=== PATIENT | female | born 1960 | race Caucasian/White ===

== ENCOUNTER → 2017-12-02 15:32 | Outpatient (CLI) | payer OTHER, SELFPAY ==
[2017-12-02 15:49] LABS: Add Manual Diff / Slide Review NO; Basophils Percent Auto 0.6 % (0-2); Eosinophils Percent Auto 1.8 % (2-4); Hematocrit 40.1 % (36-46); Hemoglobin 13.7 g/dL (12.0-16.0); Lymphocytes Percent Auto 34.1 % (25-40); Mean Corpuscular HGB Conc 34.1 % (30-36); Mean Corpuscular Hemoglobin 31.8 PG (26-34); Mean Corpuscular Volume 93.3 fL (80-100); Monocytes Percent Auto 8.9 % (3-14); Neutrophils Absolute Auto 3800 /uL (3000-5900); Neutrophils Percent Auto 54.6 % (50-75); Platelet Count 249 X10^3/uL (150-400)
[2017-12-02 15:57] LABS: Alanine Aminotransferase 23 IU/L (9-52); Albumin 4.4 g/dL (3.5-5.0); Albumin Globulin Ratio 1.6 (1.0-2.8); Alkaline Phosphatase 67 U/L (38-126); Aspartate Aminotransferase 24 IU/L (14-36); BUN Creatinine Ratio 16.3 (6-22); Bilirubin Total 0.3 mg/dL (0.2-1.3); Blood Urea Nitrogen 13 mg/dL (7-17); Calcium 8.9 mg/dL (8.4-10.2); Carbon Dioxide 26 mmol/L (22-32); Chloride 103 mmol/L (98-107); Estimated Glomerular Filt Rate > 60.0 mL/min (>60); Globulin 2.7 g/dL (1.7-4.1); Glucose 114 mg/dL (70-100); HEMOLYSIS 32 (0-50); Sodium 140 mmol/L (137-145); Total Protein 7.1 g/dL (6.3-8.2)
== END ==
PROVIDERS: Family Provider Family Medicine; PCP Family Medicine; Visit Provider Nurse Practitioner Gerontology
DX: D05.11 Intraductal carcinoma in situ of right breast (principal)
CPT/HCPCS: 36415; 80053; 85025

== ENCOUNTER → 2018-05-31 14:01 | Outpatient (CLI) | payer OTHER, SELFPAY ==
[2018-05-31 14:23] LABS: Add Manual Diff / Slide Review NO; Basophils Absolute Auto 200 /uL (0-100); Basophils Percent Auto 2.1 % (0-2); Eosinophils Absolute Auto 100 /uL (0-450); Eosinophils Percent Auto 1.3 % (2-4); Hematocrit 40.1 % (36-46); Hemoglobin 13.8 g/dL (12.0-16.0); Lymphocytes Absolute Auto 2700 /uL (1100-4500); Lymphocytes Percent Auto 37.2 % (25-40); Mean Corpuscular HGB Conc 34.5 % (30-36); Mean Corpuscular Hemoglobin 31.3 PG (26-34); Monocytes Absolute Auto 400 /uL (0-900); Monocytes Percent Auto 5.2 % (3-14); Neutrophils Absolute Auto 4000 /uL (1500-7000); Neutrophils Percent Auto 54.2 % (50-75); Platelet Count 262 X10^3/uL (150-400); Red Blood Cell Count 4.41 X10^6/uL (4.0-5.2); Red Cell Distribution Width 12.3 % (11.6-14.8); White Blood Cell Count 7.3 X10^3/uL (4.5-11.0)
[2018-05-31 16:02] LABS: Alanine Aminotransferase 28 IU/L (9-52); Albumin 4.4 g/dL (3.5-5.0); Albumin Globulin Ratio 1.5 (1.0-2.8); Alkaline Phosphatase 60 U/L (38-126); Aspartate Aminotransferase 26 IU/L (14-36); BUN Creatinine Ratio 17.5 (6-22); Bilirubin Total 0.3 mg/dL (0.2-1.3); Blood Urea Nitrogen 14 mg/dL (7-17); Carbon Dioxide 27 mmol/L (22-32); Chloride 104 mmol/L (98-107); Estimated Glomerular Filt Rate > 60.0 mL/min (>60); Glucose 93 mg/dL (70-100); HEMOLYSIS 19 (0-50); Potassium 3.9 mmol/L (3.4-5.1); Sodium 140 mmol/L (137-145); Total Protein 7.4 g/dL (6.3-8.2)
== END ==
PROVIDERS: Family Provider Family Medicine; PCP Family Medicine; Visit Provider Nurse Practitioner Gerontology
DX: D05.91 Unspecified type of carcinoma in situ of right breast (principal); Z79.810 Long term (current) use of selective estrogen receptor modulators (SERMs)
CPT/HCPCS: 36415; 80053; 85025

== ENCOUNTER → 2018-07-12 14:14 | Outpatient (CLI) | payer OTHER, SELFPAY ==
--- NOTE | 2018-07-12 | DI.MG.S_ITS ---
BILATERAL DIGITAL SCREENING MAMMOGRAM 3D/2D WITH CAD: 07/12/2018 CLINICAL: Routine screening. Personal history of right breast cancer. Family history of breast cancer. Comparison is made to exams dated: 06/03/2017 mammogram, 05/08/2016 mammogram, and 04/27/2015 mammogram - [facility]. The tissue of both breasts is extremely dense, which lowers the sensitivity of mammography. Current study was also evaluated with a Computer Aided Detection (CAD) system. There are benign post operative findings in the right breast. There are mole markers on the right breast. There is a mole marker on the left breast. No significant masses, calcifications, or other findings are seen in either breast. There has been no significant interval change. IMPRESSION: There is no mammographic evidence of malignancy. A 1 year screening mammogram is recommended. This exam was interpreted at Station ID: [id number]. NOTE: For mammograms, a report in lay terms will be sent to the patient. Approximately 15% of breast malignancies will not be visualized mammographically. In the management of a palpable breast mass, a negative mammogram must not discourage biopsy of a clinically suspicious lesion. Electronically Signed By: Pedro [email or web address]/[email or web address]:07/12/2018 18:45:29 copy to: UNIQUE NUNES letter sent: Normal Exam ACR BI-RADS Category 2: Benign Finding(s) [id number]
== END ==
PROVIDERS: Family Provider Nurse Practitioner Gerontology; PCP Family Medicine; Visit Provider Family Medicine
DX: Z12.31 Encounter for screening mammogram for malignant neoplasm of breast (principal); Z85.3 Personal history of malignant neoplasm of breast; Z80.3 Family history of malignant neoplasm of breast
CPT/HCPCS: 77063; 77067

== ENCOUNTER → 2018-11-15 06:52 | Outpatient (CLI) | payer OTHER, SELFPAY ==
[2018-11-15 07:15] LABS: Add Manual Diff / Slide Review NO; Basophils Absolute Auto 0 /uL (0-100); Basophils Percent Auto 0.7 % (0-2); Eosinophils Absolute Auto 300 /uL (0-450); Eosinophils Percent Auto 4.1 % (2-4); Hematocrit 39.5 % (36-46); Hemoglobin 13.4 g/dL (12.0-16.0); Lymphocytes Absolute Auto 2100 /uL (1100-4500); Lymphocytes Percent Auto 34.1 % (25-40); Mean Corpuscular HGB Conc 33.8 % (30-36); Mean Corpuscular Hemoglobin 31.6 PG (26-34); Mean Corpuscular Volume 93.3 fL (80-100); Monocytes Absolute Auto 600 /uL (0-900); Monocytes Percent Auto 8.9 % (3-14); Neutrophils Absolute Auto 3300 /uL (1500-7000); Neutrophils Percent Auto 52.2 % (50-75); Platelet Count 240 X10^3/uL (150-400); Red Blood Cell Count 4.23 X10^6/uL (4.0-5.2); Red Cell Distribution Width 12.9 % (11.6-14.8); White Blood Cell Count 6.3 X10^3/uL (4.5-11.0)
[2018-11-15 07:23] LABS: Alanine Aminotransferase 12 IU/L (9-52); Albumin 4.1 g/dL (3.5-5.0); Albumin Globulin Ratio 1.4 (1.0-2.8); Alkaline Phosphatase 72 U/L (38-126); Aspartate Aminotransferase 20 IU/L (14-36); BUN Creatinine Ratio 24.3 (6-22); Bilirubin Total 0.2 mg/dL (0.2-1.3); Blood Urea Nitrogen 17 mg/dL (7-17); Calcium 8.7 mg/dL (8.4-10.2); Carbon Dioxide 29 mmol/L (22-32); Chloride 105 mmol/L (98-107); Estimated Glomerular Filt Rate > 60.0 mL/min (>60); Globulin 2.9 g/dL (1.7-4.1); Glucose 112 mg/dL (70-100); HEMOLYSIS 24 (0-50); Potassium 4.3 mmol/L (3.4-5.1); Sodium 139 mmol/L (137-145)
[2018-11-15 08:58] LABS: Cholesterol 141 mg/dL (140-199); HDL Cholesterol 33 mg/dL (40-60); LDL Cholesterol Calculated 82 mg/dL (<100); Triglycerides 130 mg/dL (35-150)
[2018-11-15 09:09] LABS: Vitamin D 25 Hydroxy (D3) 46.4 ng/mL (30.0-100.0)
[2018-11-15 09:25] LABS: Thyroid Stimulating Hormone 1.07 uIU/mL (0.47-4.68)
[2018-11-15 09:43] LABS: Vitamin B12 691 pg/mL (239-931)
== END ==
PROVIDERS: Nurse Practitioner Gerontology; PCP Family Medicine; Visit Provider Family Medicine
DX: D05.11 Intraductal carcinoma in situ of right breast (principal); E78.5 Hyperlipidemia, unspecified; E55.9 Vitamin D deficiency, unspecified; E53.9 Vitamin B deficiency, unspecified; Z13.220 Encounter for screening for lipoid disorders; Z13.29 Encounter for screening for other suspected endocrine disorder; Z51.81 Encounter for therapeutic drug level monitoring
CPT/HCPCS: 36415; 80053; 80061; 82306; 82607; 84443; 85025

== ENCOUNTER → 2018-11-16 12:39 | Outpatient (CLI) | payer OTHER, SELFPAY ==
[2018-11-16 13:53] LABS: Appearance Urine UA CLEAR; Bilirubin Urine UA NEGATIVE (NEGATIVE); Color Urine UA YELLOW; Glucose Urine UA NEGATIVE (Negative); Ketones Urine UA NEGATIVE (NEGATIVE); Leukocyte Esterase Urine UA NEGATIVE (NEGATIVE); Nitrite Urine UA NEGATIVE (Negative); Occult Blood Urine UA NEGATIVE (Negative); Protein Urine UA NEGATIVE (Negative); Specific Gravity Urine UA 1.015 (1.000-1.035); Urobilinogen Urine UA 0.2 E.U./dL (0.2); pH Urine UA 6.5 (4.5-8.0)
== END ==
PROVIDERS: PCP Family Medicine; Visit Provider Family Medicine
DX: E78.5 Hyperlipidemia, unspecified (principal); Z13.220 Encounter for screening for lipoid disorders; Z13.29 Encounter for screening for other suspected endocrine disorder; Z51.81 Encounter for therapeutic drug level monitoring
CPT/HCPCS: 81003

== ENCOUNTER → 2018-12-14 14:40 | Oncology outpatient (ONC) | payer OTHER, SELFPAY ==
[2017-12-10 15:44] VITALS: BP 120/78; PULSE 98; RESP 18; TEMP 36.9; O2SAT 97
--- NOTE | 2017-12-10 16:22 | ONC.APRN.PN ---
Assessment and Plan (1) Ductal carcinoma in situ (DCIS) of right breast Current visit: No Status: Acute 12/10/17 16:25 The patient is a 57 year old Female who is being seen in the clinic 12/10/2017 . She carries a diagnosis of right-sided DCIS in clinical remission/surveillance since original diagnosis was made 2015. On exam today no clinical signs or symptoms of disease recurrence. Additionally, CBC, CMP unremarkable. Bilateral screening mammogram 06/03/2017 no evidence of malignancy with recommendation to repeat in one year. Return to clinic in 6 months time for provider visit, CBC, CMP. Continue daily tamoxifen. Continue with annual bilateral screening mammograms in May every year. I have encouraged the patient to schedule a HEPATOLOGIST pelvic exam with her primary care provider noting she is on tamoxifen. PN -Subjective Interval history: The patient is a 57 year old Female who is being seen in the clinic 12/10/2017 . She carries a diagnosis of right-sided DCIS in clinical remission/surveillance since original diagnosis was made 2015. Patient presents today for a 6 month interval follow-up, she continues with tamoxifen. Remainder of review of systems survey was negative for any cough sore throat vaginal bleeding or spotting. NO recent illnesses or infections. Denies myalgias arthralgias. No new pain, no new lumps or bumps. Mild hot flashes every now and then. She has not had a HEPATOLOGIST exam in a long time. Bilateral screening mammogram 06/03/2017 no evidence of malignancy with recommendation to repeat in one year. Past Medical History The patient's past medical history is significant for: 1) Right-sided DCIS Diagnosis: 06/05/2015. Core needle biopsy of the right breast at 2 separate locations: 10:00 middle one third and 10:00 posterior one third position. Pathology for both specimens identifying focal atypical ductal hyperplasia with fibrocystic changes microcalcifications no evidence of malignancy. 06/05/2015. Partial mastectomy without sentinel node procedure on 06/05/2015. Excised tissue measured approximately 66 x 48 x 33 mm. Pathologywith multifocal DCIS with an estimated size of 4.5 millimeters. Architectural pectoral pattern consistent with cribriform micropapillary and solid features nuclear grade was low. No necrosis was seen. Immunostains on the DCIS were ER and NE positive at greater than 95% and greater than 80% respectively Surgical margins were clear with the closest being anterior at 7.5 mm. Additional foci of ADH was also noted. No evidence of invasive disease was seen. Treatment: Patient is status post consolidative radiation therapy. July 2015-present: Tamoxifen 20 mg daily ?5 years. Surveillance: 05/08/2016. Bilateral screening mammogram. No evidence of recurrence or malignancy. Home Medications and Allergies Home Medications Medication Instructions Recorded Confirmed Type cyclobenzaprine 10 mg PO Q DAY PRN #30 tabs 01/22/16 Rx epinephrine [EpiPen 2-Jayjay] 1 actuation IJ X1 #2 pac 01/22/16 Rx omeprazole 40 mg PO Q DAY #30 cap 04/07/16 Rx hepatitis A virus vaccine (PF) 50 unit IM X1 #1 ml 12/08/16 Rx [Vaqta (PF)] hepatitis B virus vacc.rec(PF) 20 mcg IM X1 #1 ml 12/08/16 Rx [Engerix-B (PF)] atorvastatin [Lipitor] 10 mg PO HS #90 tab 02/23/17 Rx ibuprofen 800 mg PO TID PRN #100 tab 05/27/17 Rx triamcinolone acetonide 1 anirudh TOPICAL Q2HP PRN #15 gm 06/23/17 Rx fluticasone 50 mcg/actuation nasal 1 spray INTRANASAL QDAY #16 gm 10/12/17 Rx spray,suspension acyclovir [Zovirax] 400 mg PO BID #120 cap 11/13/17 Rx tamoxifen 20 mg PO DAILY 12/10/17 12/10/17 History Allergies Allergy/AdvReac Type Severity Reaction Status Date / Time acetaminophen [From VICODIN] Allergy Mild rash Unverified 07/29/17 12:07 hydrocodone [From VICODIN] Allergy Mild rash Unverified 07/29/17 12:07 oxycodone [OXYCODONE] Allergy Mild rash Unverified 07/29/17 12:07 Penicillins [PENICILLINS] Allergy Unknown Unverified 07/29/17 12:07 Exam Vital signs: Last Vital Signs Temp 98.5 F 12/10/17 15:44 Pulse 98 H 12/10/17 15:44 Resp 18 12/10/17 15:44 BP 120/78 12/10/17 15:44 Pulse Ox 97 12/10/17 15:44 - Constitutional positive no acute distress, positive average body habitus - Routine HEENT Exam Head: Present: normocephalic, atraumatic Eye: Present: conjunctivae pink. Absent: conjunctival icterus, scleral injection ENT: Present: mucous membranes moist, oropharynx clear - Routine Neck Exam Present: supple. Absent: lymphadenopathy - Routine Chest/Breast/Axilla Exam Chest wall exam standard: Absent: tenderness, mass Breast: Absent: tenderness, induration, mass Axillae: Absent: lymphadenopathy, mass, tenderness - Routine Respiratory Exam Present: Clear to auscultation bilaterally. Absent: rales, rhonchi, wheezes - Routine Cardiovascular Exam Present: RRR, S1, S2. Absent: murmur, gallop, rubs, JVD - Routine Abdominal Exam Present: soft, normoactive bowel sounds. Absent: tenderness, distended, organomegaly, mass - Routine Extremities Exam Absent: edema, calf tenderness - Routine Skin Exam Present: intact, normal turgor. Absent: petechiae, rash - Routine Neurological Exam Present: alert, oriented X3 - Routine Psychiatric Exam Present: normal affect
--- NOTE | 2017-12-10 16:27 | P.PNONC_ITS ---
Assessment and Plan (1) Ductal carcinoma in situ (DCIS) of right breast Current visit: No Status: Acute 12/10/17 16:25 The patient is a 57 year old Female who is being seen in the clinic 12/10/2017 . She carries a diagnosis of right-sided DCIS in clinical remission/ surveillance since original diagnosis was made 2015. On exam today no clinical signs or symptoms of disease recurrence. Additionally , CBC, CMP unremarkable. Bilateral screening mammogram 06/03/2017 no evidence of malignancy with recommendation to repeat in one year. Return to clinic in 6 months time for provider visit, CBC, CMP. Continue daily tamoxifen. Continue with annual bilateral screening mammograms in May every year. I have encouraged the patient to schedule a RELAY TELEGRAPHER pelvic exam with her primary care provider noting she is on tamoxifen. PN -Subjective Interval history: The patient is a 57 year old Female who is being seen in the clinic 12/10/2017 . She carries a diagnosis of right-sided DCIS in clinical remission/ surveillance since original diagnosis was made 2015. Patient presents today for a 6 month interval follow-up, she continues with tamoxifen. Remainder of review of systems survey was negative for any cough sore throat vaginal bleeding or spotting. NO recent illnesses or infections. Denies myalgias arthralgias. No new pain, no new lumps or bumps. Mild hot flashes every now and then. She has not had a RELAY TELEGRAPHER exam in a long time. Bilateral screening mammogram 06/03/2017 no evidence of malignancy with recommendation to repeat in one year. Past Medical History The patient's past medical history is significant for: 1) Right-sided DCIS Diagnosis: 06/05/2015. Core needle biopsy of the right breast at 2 separate locations: 10: 00 middle one third and 10:00 posterior one third position. Pathology for both specimens identifying focal atypical ductal hyperplasia with fibrocystic changes microcalcifications no evidence of malignancy. 06/05/2015. Partial mastectomy without sentinel node procedure on 06/05/2015. Excised tissue measured approximately 66 x 48 x 33 mm. Pathologywith multifocal DCIS with an estimated size of 4.5 millimeters. Architectural pectoral pattern consistent with cribriform micropapillary and solid features nuclear grade was low. No necrosis was seen. Immunostains on the DCIS were ER and TN positive at greater than 95% and greater than 80% respectively Surgical margins were clear with the closest being anterior at 7.5 mm. Additional foci of ADH was also noted. No evidence of invasive disease was seen. Treatment: Patient is status post consolidative radiation therapy. July 2015-present: Tamoxifen 20 mg daily ?5 years. Surveillance: 05/08/2016. Bilateral screening mammogram. No evidence of recurrence or malignancy. Home Medications and Allergies Home Medications Medication Instructions Recorded Confirmed Type cyclobenzaprine 10 mg PO Q DAY PRN #30 tabs 01/22/16 Rx epinephrine [EpiPen 2-Jayjay] 1 actuation IJ X1 #2 pac 01/22/16 Rx omeprazole 40 mg PO Q DAY #30 cap 04/07/16 Rx hepatitis A virus vaccine (PF) 50 unit IM X1 #1 ml 12/08/16 Rx [Vaqta (PF)] hepatitis B virus vacc.rec(PF) 20 mcg IM X1 #1 ml 12/08/16 Rx [Engerix-B (PF)] atorvastatin [Lipitor] 10 mg PO HS #90 tab 02/23/17 Rx ibuprofen 800 mg PO TID PRN #100 tab 05/27/17 Rx triamcinolone acetonide 1 anirudh TOPICAL Q2HP PRN #15 gm 06/23/17 Rx fluticasone 50 mcg/actuation nasal 1 spray INTRANASAL QDAY #16 gm 10/12/17 Rx spray,suspension acyclovir [Zovirax] 400 mg PO BID #120 cap 11/13/17 Rx tamoxifen 20 mg PO DAILY 12/10/17 12/10/17 History Allergies Allergy/AdvReac Type Severity Reaction Status Date / Time acetaminophen [From VICODIN] Allergy Mild rash Unverified 07/29/17 12:07 hydrocodone [From VICODIN] Allergy Mild rash Unverified 07/29/17 12:07 oxycodone [OXYCODONE] Allergy Mild rash Unverified 07/29/17 12:07 Penicillins [PENICILLINS] Allergy Unknown Unverified 07/29/17 12:07 Exam Vital signs: Last Vital Signs Temp 98.5 F 12/10/17 15:44 Pulse 98 H 12/10/17 15:44 Resp 18 12/10/17 15:44 BP 120/78 12/10/17 15:44 Pulse Ox 97 12/10/17 15:44 - Constitutional positive no acute distress, positive average body habitus - Routine HEENT Exam Head: Present: normocephalic, atraumatic Eye: Present: conjunctivae pink. Absent: conjunctival icterus, scleral injection ENT: Present: mucous membranes moist, oropharynx clear - Routine Neck Exam Present: supple. Absent: lymphadenopathy - Routine Chest/Breast/Axilla Exam Chest wall exam standard: Absent: tenderness, mass Breast: Absent: tenderness, induration, mass Axillae: Absent: lymphadenopathy, mass, tenderness - Routine Respiratory Exam Present: Clear to auscultation bilaterally. Absent: rales, rhonchi, wheezes - Routine Cardiovascular Exam Present: RRR, S1, S2. Absent: murmur, gallop, rubs, JVD - Routine Abdominal Exam Present: soft, normoactive bowel sounds. Absent: tenderness, distended, organomegaly, mass - Routine Extremities Exam Absent: edema, calf tenderness - Routine Skin Exam Present: intact, normal turgor. Absent: petechiae, rash - Routine Neurological Exam Present: alert, oriented X3 - Routine Psychiatric Exam Present: normal affect
[2018-06-17 14:55] VITALS: BP 130/80; PULSE 81; RESP 18; TEMP 36.9; O2SAT 99
--- NOTE | 2018-06-17 15:49 | P.PNONC_ITS ---
PN -Subjective Interval history: The patient is a 57 year old Female who is being seen in the clinic 06/17/2018. She carries a diagnosis of right-sided DCIS in clinical remission/surveillance since original diagnosis was made 2015. Patient presents today for a 6 month interval follow-up, she continues with tamoxifen which was initiated 2015. She reports no changes in her overall health in fact she has been feeling quite well the last 6 months. She has been using some essential oils which seem to improve her energy, asleep. She also has been trying to eat ?healthier?. She reports no adverse effects with tamoxifen specifically she denies vaginal bleeding, lower extremity swelling. She denies cough, fever, chills. No nausea. No change in appetite, weight is stable. No headaches. No new lumps or bumps, no unexplained pain, bleeding or bruising. Bilateral screening mammogram 06/03/2017 no evidence of malignancy with recommendation to repeat in one year. Pt states she will schedule. Past Medical History The patient's past medical history is significant for: 1) Right-sided DCIS Diagnosis: 06/05/2015. Core needle biopsy of the right breast at 2 separate locations: 10:00 middle one third and 10:00 posterior one third position. Pathology for both specimens identifying focal atypical ductal hyperplasia with fibrocystic changes microcalcifications no evidence of malignancy. 06/05/2015. Partial mastectomy without sentinel node procedure on 06/05/2015. Excised tissue measured approximately 66 x 48 x 33 mm. Pathologywith multifocal DCIS with an estimated size of 4.5 millimeters. Architectural pectoral pattern consistent with cribriform micropapillary and solid features nuclear grade was low. No necrosis was seen. Immunostains on the DCIS were ER and VA positive at greater than 95% and greater than 80% respectively Surgical margins were clear with the closest being anterior at 7.5 mm. Additional foci of ADH was also noted. No evidence of invasive disease was seen. Treatment: Patient is status post consolidative radiation therapy. July 2015-present: Tamoxifen 20 mg daily ?5 years. Surveillance: 05/08/2016. Bilateral screening mammogram. No evidence of recurrence or malignancy. Home Medications and Allergies Home Medications Medication Instructions Recorded Confirmed Type tamoxifen 20 mg tablet 20 mg PO DAILY #30 tab 02/26/18 03/08/18 Rx acyclovir 200 mg capsule 400 mg PO BID #120 cap 12/17/18 Rx atorvastatin 10 mg tablet 10 mg PO HS #30 tab 04/05/18 Rx fluticasone 50 mcg/actuation nasal 1 spray INTRANASAL QDAY #16 gm 04/05/18 Rx spray,suspension cyclobenzaprine 10 mg tablet 10 mg PO Q DAY PRN #30 tabs 04/06/18 Rx epinephrine 0.3 mg/0.3 mL 0.3 mg SUBCUT X1 #2 each 04/06/18 Rx injection, auto-injector ibuprofen 800 mg tablet 800 mg PO TID PRN #100 tab 04/06/18 Rx omeprazole 40 mg capsule,delayed 40 mg PO Q DAY #30 cap 04/06/18 Rx release triamcinolone acetonide 0.1 % 1 applictn TOPICAL Q2HP PRN #15 04/06/18 Rx topical cream gram Allergies Allergy/AdvReac Type Severity Reaction Status Date / Time acetaminophen [From VICODIN] Allergy Mild rash Verified 03/08/18 10:34 hydrocodone [From VICODIN] Allergy Mild rash Verified 03/08/18 10:34 oxycodone [OXYCODONE] Allergy Mild rash Verified 03/08/18 10:34 Penicillins [PENICILLINS] Allergy Unknown Verified 03/08/18 10:34 Exam Vital signs: Vital Signs Temp Pulse Resp BP Pulse Ox 06/17/18 14:55 98.5 F 81 18 130/80 99 Intake and Output 06/16/18 06/17/18 06/17/18 23:59 07:59 15:59 Other: Weight 65.5 kg Patient Weight 06/18/18 07:59 Weight 65.5 kg - Constitutional positive no acute distress - Routine HEENT Exam Eye: Present: conjunctivae pink. Absent: conjunctival icterus, scleral injecti on ENT: Present: mucous membranes moist, oropharynx clear - Routine Neck Exam Present: supple. Absent: lymphadenopathy - Routine Chest/Breast/Axilla Exam Chest wall exam standard: Absent: tenderness, mass Breast: Absent: tenderness, mass Axillae: Absent: lymphadenopathy, mass, tenderness - Routine Respiratory Exam Present: Clear to auscultation bilaterally. Absent: rales, rhonchi, wheezes - Routine Cardiovascular Exam Present: RRR, S1, S2. Absent: murmur, gallop, rubs, JVD - Routine Abdominal Exam Present: soft, normoactive bowel sounds. Absent: tenderness, distended, organomegaly - Routine Extremities Exam Absent: edema, calf tenderness - Routine Skin Exam Present: intact, normal turgor - Routine Neurological Exam Present: alert, oriented X3 - Routine Psychiatric Exam Present: normal affect Assessment and Plan (1) Ductal carcinoma in situ (DCIS) of right breast Current visit: No Status: Acute The patient is a 57-year-old female who we follow in this clinic for a diagnosis of right-sided DCIS originally diagnosed in 2016. Reassuringly on exam today no clinical signs or symptoms to suggest disease recurrence. Additionally, CBC, CMP remain unremarkable. Patient is due for her bilateral screening mammogram most recent was June 03, 2017. Patient states she will schedule. Continue tamoxifen 20 mg daily. Return to clinic in 6 months time for provider visit CBC CMP.
[2018-12-08 12:34] LABS: Add Manual Diff / Slide Review NO; Basophils Absolute Auto 0 /uL (0-100); Basophils Percent Auto 0.6 % (0-2); Eosinophils Absolute Auto 100 /uL (0-450); Eosinophils Percent Auto 1.6 % (2-4); Hemoglobin 13.7 g/dL (12.0-16.0); Lymphocytes Absolute Auto 2100 /uL (1100-4500); Lymphocytes Percent Auto 33.3 % (25-40); Mean Corpuscular HGB Conc 34.3 % (30-36); Mean Corpuscular Hemoglobin 31.8 PG (26-34); Mean Corpuscular Volume 92.8 fL (80-100); Monocytes Absolute Auto 400 /uL (0-900); Neutrophils Absolute Auto 3600 /uL (1500-7000); Neutrophils Percent Auto 57.5 % (50-75); Platelet Count 239 X10^3/uL (150-400); Red Blood Cell Count 4.31 X10^6/uL (4.0-5.2); Red Cell Distribution Width 13.2 % (11.6-14.8); White Blood Cell Count 6.3 X10^3/uL (4.5-11.0)
[2018-12-08 12:45] LABS: Alanine Aminotransferase 19 IU/L (9-52); Albumin 4.4 g/dL (3.5-5.0); Albumin Globulin Ratio 1.5 (1.0-2.8); Alkaline Phosphatase 73 U/L (38-126); Aspartate Aminotransferase 24 IU/L (14-36); BUN Creatinine Ratio 24.3 (6-22); Bilirubin Total 0.4 mg/dL (0.2-1.3); Blood Urea Nitrogen 17 mg/dL (7-17); Calcium 9.6 mg/dL (8.4-10.2); Carbon Dioxide 31 mmol/L (22-32); Chloride 103 mmol/L (98-107); Estimated Glomerular Filt Rate > 60.0 mL/min (>60); Glucose 85 mg/dL (70-100); HEMOLYSIS 22 (0-50); Potassium 4.3 mmol/L (3.4-5.1); Sodium 141 mmol/L (137-145); Total Protein 7.4 g/dL (6.3-8.2)
[2018-12-14 14:48] VITALS: BP 127/81; PULSE 67; RESP 16; TEMP 36.8; O2SAT 100
--- NOTE | 2018-12-14 15:07 | ONC.PN ---
PN -Subjective Interval history: Diagnosis: DCIS of the right breast Previous treatment: 1. Lumpectomy in May 2015 2. Adjuvant radiation 3. Tamoxifen beginning in 2016 Interval history: The patient is a 58-year-old woman who returns today for follow-up. She has a history of DCIS involving the right breast. She has been on tamoxifen now for almost 3-1/2 years. She reports that she is tolerating it pretty well. She is having some hot flashes. She had some rash when she initially started but this has resolved. She denies any unusual bleeding or bruising. No shortness of breath or cough. No GI complaints. She has not noticed any changes in the breast. She denies any other changes in her health. Past Medical History The patient's past medical history is significant for: 1) Right-sided DCIS Diagnosis: 06/05/2015. Core needle biopsy of the right breast at 2 separate locations: 10:00 middle one third and 10:00 posterior one third position. Pathology for both specimens identifying focal atypical ductal hyperplasia with fibrocystic changes microcalcifications no evidence of malignancy. 06/05/2015. Partial mastectomy without sentinel node procedure on 06/05/2015. Excised tissue measured approximately 66 x 48 x 33 mm. Pathologywith multifocal DCIS with an estimated size of 4.5 millimeters. Architectural pectoral pattern consistent with cribriform micropapillary and solid features nuclear grade was low. No necrosis was seen. Immunostains on the DCIS were ER and IA positive at greater than 95% and greater than 80% respectively Surgical margins were clear with the closest being anterior at 7.5 mm. Additional foci of ADH was also noted. No evidence of invasive disease was seen. Treatment: Patient is status post consolidative radiation therapy. July 2015-present: Tamoxifen 20 mg daily ?5 years. Surveillance: 05/08/2016. Bilateral screening mammogram. No evidence of recurrence or malignancy. Home Medications and Allergies Home Medications Medication Instructions Recorded Confirmed Type tamoxifen 20 mg tablet 20 mg PO DAILY #30 tab 02/26/18 12/14/18 Rx epinephrine 0.3 mg/0.3 mL 0.3 mg SUBCUT X1 #2 each 04/06/18 12/14/18 Rx injection, auto-injector ibuprofen 800 mg tablet 800 mg PO TID PRN #100 tab 04/06/18 12/14/18 Rx omeprazole 40 mg capsule,delayed 40 mg PO Q DAY #30 cap 12/18/18 08/27/19 Rx release triamcinolone acetonide 0.1 % 1 applictn TOPICAL Q2HP PRN #15 04/06/18 12/14/18 Rx topical cream gram fluticasone propionate 50 1 spray INTRANASAL QDAY #16 gm 09/22/18 12/14/18 Rx mcg/actuation nasal spray,suspension atorvastatin 10 mg tablet 10 mg PO HS #30 tab 11/11/18 12/14/18 Rx Allergies Allergy/AdvReac Type Severity Reaction Status Date / Time acetaminophen [From VICODIN] Allergy Mild rash Verified 12/08/18 10:49 hydrocodone [From VICODIN] Allergy Mild rash Verified 12/08/18 10:49 oxycodone [OXYCODONE] Allergy Mild rash Verified 12/08/18 10:49 Penicillins [PENICILLINS] Allergy Unknown Verified 12/08/18 10:49 Exam Vital signs: Vital Signs Temp Pulse Resp BP Pulse Ox 12/14/18 14:48 98.2 F 67 16 127/81 100 Intake and Output 12/13/18 12/14/18 12/14/18 23:59 07:59 15:59 Other: Weight 65 kg Patient Weight 12/14/18 23:59 Weight 65 kg - Constitutional positive no acute distress, positive average body habitus - Routine HEENT Exam Head: Present: normocephalic, atraumatic Eye: Present: EOMI, PERRL. Absent: conjunctival icterus, scleral injection ENT: Present: mucous membranes moist, oropharynx clear - Routine Neck Exam Present: supple. Absent: lymphadenopathy - Routine Chest/Breast/Axilla Exam Comments: She has 1 healed incision on the lateral right breast. There is some scar tissue but no suspicious masses. No masses in the left breast. No axillary adenopathy on either side. - Routine Respiratory Exam Present: Clear to auscultation bilaterally. Absent: rales, wheezes - Routine Cardiovascular Exam Present: RRR, S1, S2. Absent: murmur - Routine Abdominal Exam Present: soft, normoactive bowel sounds. Absent: tenderness, organomegaly, mass - Routine Neurological Exam Present: alert, oriented X3 - Routine Psychiatric Exam Present: normal affect, normal thought process Results - Labs Laboratory Last Values WBC 6.3 X10^3/uL (4.5-11.0) 12/08/18 12:17 RBC 4.31 X10^6/uL (4.0-5.2) 12/08/18 12:17 Hgb 13.7 g/dL (12.0-16.0) 12/08/18 12:17 Hct 40.0 % (36-46) 12/08/18 12:17 MCV 92.8 fL (80-100) 12/08/18 12:17 MCH 31.8 PG (26-34) 12/08/18 12:17 MCHC 34.3 % (30-36) 12/08/18 12:17 RDW 13.2 % (11.6-14.8) 12/08/18 12:17 Plt Count 239 X10^3/uL (150-400) 12/08/18 12:17 Neut % (Auto) 57.5 % (50-75) 12/08/18 12:17 Lymph % (Auto) 33.3 % (25-40) 12/08/18 12:17 Davidson % (Auto) 7.0 % (3-14) 12/08/18 12:17 Eos % (Auto) 1.6 % (2-4) L 12/08/18 12:17 Baso % (Auto) 0.6 % (0-2) 12/08/18 12:17 Neut # (Auto) 3600 /uL (1378-1682) 12/08/18 12:17 Lymph # (Auto) 2100 /uL (1864-6919) 12/08/18 12:17 Davidson # (Auto) 400 /uL (0-900) 12/08/18 12:17 Eos # (Auto) 100 /uL (0-450) 12/08/18 12:17 Baso # (Auto) 0 /uL (0-100) 12/08/18 12:17 Sodium 141 mmol/L (137-145) 12/08/18 12:17 Potassium 4.3 mmol/L (3.4-5.1) 12/08/18 12:17 Chloride 103 mmol/L (98-107) 12/08/18 12:17 Carbon Dioxide 31 mmol/L (22-32) 12/08/18 12:17 BUN 17 mg/dL (7-17) 12/08/18 12:17 Creatinine 0.70 mg/dL (0.52-1.04) 12/08/18 12:17 Estimated GFR > 60.0 mL/min (>60) 12/08/18 12:17 BUN/Creatinine Ratio 24.3 (6-22) H 12/08/18 12:17 Glucose 85 mg/dL (70-100) 12/08/18 12:17 Calcium 9.6 mg/dL (8.4-10.2) 12/08/18 12:17 Total Bilirubin 0.4 mg/dL (0.2-1.3) 12/08/18 12:17 AST 24 IU/L (14-36) 12/08/18 12:17 ALT 19 IU/L (9-52) 12/08/18 12:17 Alkaline Phosphatase 73 U/L (38-126) 12/08/18 12:17 Total Protein 7.4 g/dL (6.3-8.2) 12/08/18 12:17 Albumin 4.4 g/dL (3.5-5.0) 12/08/18 12:17 Globulin 3.0 g/dL (1.7-4.1) 12/08/18 12:17 Albumin/Globulin Ratio 1.5 (1.0-2.8) 12/08/18 12:17 Assessment and Plan (1) Ductal carcinoma in situ (DCIS) of right breast Current visit: No Status: Acute The patient is a 57-year-old female who we follow in this clinic for a diagnosis of right-sided DCIS originally diagnosed in 2016. She is tolerating tamoxifen quite well. She has no evidence of disease. She will return to clinic in 6 months for follow-up. She will be due for a mammogram in June of next year.
== END ==
PROVIDERS: Family Provider Family Medicine; PCP Family Medicine; Visit Provider Internal Medicine Hematology & Oncology
DX: D05.81 Other specified type of carcinoma in situ of right breast (principal); Z79.810 Long term (current) use of selective estrogen receptor modulators (SERMs)
CPT/HCPCS: 36415; 80053; 85025; 99214

== ENCOUNTER → 2019-01-20 12:10 | Outpatient (CLI) | payer OTHER, SELFPAY | PROVIDERS: PCP Family Medicine | DX: Z23 Encounter for immunization (principal) | CPT/HCPCS: 90471; 90686 ==

== ENCOUNTER → 2019-08-12 07:11 | Outpatient (CLI) | payer OTHER, SELFPAY ==
[2019-08-12 07:30] LABS: Add Manual Diff / Slide Review NO; Basophils Absolute Auto 100 /uL (0-100); Basophils Percent Auto 2.3 % (0-2); Eosinophils Absolute Auto 200 /uL (0-450); Eosinophils Percent Auto 3.1 % (2-4); Hematocrit 41.4 % (36-46); Hemoglobin 14.4 g/dL (12.0-16.0); Lymphocytes Absolute Auto 2100 /uL (1100-4500); Lymphocytes Percent Auto 33.1 % (25-40); Mean Corpuscular HGB Conc 34.7 % (30-36); Mean Corpuscular Hemoglobin 31.7 PG (26-34); Mean Corpuscular Volume 91.2 fL (80-100); Monocytes Absolute Auto 400 /uL (0-900); Monocytes Percent Auto 5.9 % (3-14); Neutrophils Absolute Auto 3500 /uL (1500-7000); Neutrophils Percent Auto 55.6 % (50-75); Platelet Count 267 X10^3/uL (150-400); Red Blood Cell Count 4.53 X10^6/uL (4.0-5.2); Red Cell Distribution Width 13.3 % (11.6-14.8); White Blood Cell Count 6.3 X10^3/uL (4.5-11.0)
[2019-08-12 08:44] LABS: Alanine Aminotransferase 19 IU/L (<35); Albumin 4.6 g/dL (3.5-5.0); Albumin Globulin Ratio 1.5 (1.0-2.8); Alkaline Phosphatase 78 U/L (38-126); Aspartate Aminotransferase 25 IU/L (14-36); BUN Creatinine Ratio 21.3 (6-22); Bilirubin Total 0.4 mg/dL (0.2-1.3); Blood Urea Nitrogen 17 mg/dL (7-17); Calcium 9.8 mg/dL (8.4-10.2); Carbon Dioxide 27 mmol/L (22-32); Chloride 102 mmol/L (98-107); Cholesterol 230 mg/dL (140-199); Estimated Glomerular Filt Rate > 60.0 mL/min (>60); Glucose 110 mg/dL (70-100); HDL Cholesterol 39 mg/dL (40-60); HEMOLYSIS < 15 (0-50); LDL Cholesterol Calculated 143 mg/dL (<100); Potassium 4.2 mmol/L (3.4-5.1); Sodium 139 mmol/L (137-145); Total Protein 7.6 g/dL (6.3-8.2); Triglycerides 241 mg/dL (35-150)
== END ==
PROVIDERS: PCP Family Medicine; Referring Provider Family Medicine; Visit Provider Family Medicine
DX: D05.11 Intraductal carcinoma in situ of right breast (principal); E78.5 Hyperlipidemia, unspecified
CPT/HCPCS: 36415; 80053; 80061; 85025

== ENCOUNTER → 2019-09-16 10:42 | Outpatient (CLI) | payer OTHER, SELFPAY ==
--- NOTE | 2019-09-16 10:58 | DI.MG.S_ITS ---
Patient Name: FARNAZ VALDERRAMA date: 1960 Sex: F Attending Physician: GREGORIO Indications: Date: 09/16/2019 10:49 At the request of: SHELL PERKINS Procedure: MM screening mammo BI BILATERAL DIGITAL SCREENING MAMMOGRAM 3D/2D WITH CAD POST LUMPECTOMY: 09/16/2019 CLINICAL: Breast cancer. Family history of breast cancer. Comparison is made to exams dated: 07/12/2018 mammogram, 06/03/2017 mammogram, and 05/08/2016 mammogram - [facility]. The tissue of both breasts is extremely dense, which lowers the sensitivity of mammography. Current study was also evaluated with a Computer Aided Detection (CAD) system. There are benign post operative findings in the right breast. There are mole markers on the right breast. There is a mole marker on the left breast. No significant masses, calcifications, or other findings are seen in either breast. There has been no significant interval change. IMPRESSION: There is no mammographic evidence of malignancy. A 1 year screening mammogram is recommended. This exam was interpreted at Station ID: [id number]. NOTE: For mammograms, a report in lay terms will be sent to the patient. Approximately 15% of breast malignancies will not be visualized mammographically. In the management of a palpable breast mass, a negative mammogram must not discourage biopsy of a clinically suspicious lesion. Electronically Signed By: Chriss beckman/portia:09/16/2019 11:38:08 copy to: Cece Velez letter sent: Normal Exam Continued Report - Page 2 of 2 Patient Name: FARNAZ VALDERRAMA date: 1960 Sex: F Attending Physician: GREGORIO Indications: Date: 09/16/2019 10:49 At the request of: SHELL PERKINS Procedure: MM screening mammo BI ACR BI-RADS Category 2: Benign Finding(s) 3342F
== END ==
PROVIDERS: PCP Family Medicine
DX: Z12.31 Encounter for screening mammogram for malignant neoplasm of breast (principal); Z80.3 Family history of malignant neoplasm of breast
CPT/HCPCS: 77063; 77067

== ENCOUNTER → 2020-07-05 07:55 | Outpatient (CLI) | payer OTHER, SELFPAY ==
[2020-07-05] MEDS: COVID-19 VACC #1, MRNA(MOD) 100 MCG/0.5 ML VIAL IM (08:02)
== END ==
PROVIDERS: Visit Provider Internal Medicine
DX: Z23 Encounter for immunization (principal)
CPT/HCPCS: 0011A; 91301

== ENCOUNTER → 2020-08-02 07:44 | Outpatient (CLI) | payer OTHER, SELFPAY ==
[2020-08-02] MEDS: COVID-19 VACC #2, MRNA(MOD) 100 MCG/0.5 ML VIAL IM (07:54)
== END ==
PROVIDERS: Visit Provider Internal Medicine
DX: Z23 Encounter for immunization (principal)
CPT/HCPCS: 0012A; 91301

== ENCOUNTER → 2021-03-26 07:06 | Outpatient (CLI) | payer OTHER, SELFPAY ==
[2021-03-26 07:55] LABS: Add Manual Diff / Slide Review NO; Basophils Absolute Auto 0 /uL (0-100); Basophils Percent Auto 0.5 % (0-2); Eosinophils Absolute Auto 200 /uL (0-450); Eosinophils Percent Auto 2.8 % (2-4); Hematocrit 40.3 % (36-46); Hemoglobin 13.7 g/dL (12.0-16.0); Lymphocytes Absolute Auto 2700 /uL (1100-4500); Lymphocytes Percent Auto 33.4 % (25-40); Mean Corpuscular HGB Conc 33.9 % (30-36); Mean Corpuscular Hemoglobin 31.3 PG (26-34); Mean Corpuscular Volume 92.3 fL (80-100); Monocytes Absolute Auto 500 /uL (0-900); Monocytes Percent Auto 6.2 % (3-14); Neutrophils Absolute Auto 4600 /uL (1500-7000); Neutrophils Percent Auto 57.1 % (50-75); Platelet Count 280 X10^3/uL (150-400); Red Blood Cell Count 4.37 X10^6/uL (4.0-5.2); Red Cell Distribution Width 13.3 % (11.6-14.8); White Blood Cell Count 8.1 X10^3/uL (4.5-11.0)
[2021-03-26 08:19] LABS: Alanine Aminotransferase 17 IU/L (<35); Albumin 4.5 g/dL (3.5-5.0); Albumin Globulin Ratio 1.8 (1.0-2.8); Alkaline Phosphatase 74 U/L (38-126); Aspartate Aminotransferase 25 IU/L (14-36); BUN Creatinine Ratio 15.7 (6-22); Bilirubin Total 0.5 mg/dL (0.2-1.3); Blood Urea Nitrogen 14 mg/dL (7-17); Calcium 9.5 mg/dL (8.4-10.2); Carbon Dioxide 31 mmol/L (22-32); Chloride 100 mmol/L (98-107); Cholesterol 219 mg/dL (140-199); Estimated Glomerular Filt Rate > 60.0 mL/min (>60); Globulin 2.5 g/dL (1.7-4.1); Glucose 90 mg/dL (70-100); HDL Cholesterol 40 mg/dL (40-60); HEMOLYSIS < 15 (0-50); LDL Cholesterol Calculated 133 mg/dL (<100); Potassium 4.2 mmol/L (3.4-5.1); Sodium 137 mmol/L (137-145); Triglycerides 230 mg/dL (35-150)
== END ==
PROVIDERS: PCP Family Medicine; Referring Provider Family Medicine; Visit Provider Family Medicine
DX: D05.11 Intraductal carcinoma in situ of right breast (principal); E78.5 Hyperlipidemia, unspecified; K21.9 Gastro-esophageal reflux disease without esophagitis
CPT/HCPCS: 36415; 80053; 80061; 85025

== ENCOUNTER → 2021-08-28 12:04 | Outpatient (CLI) | payer OTHER, SELFPAY ==
--- NOTE | 2021-08-28 12:05 | DI.MG.S_ITS ---
BILATERAL DIGITAL SCREENING MAMMOGRAM 3D/2D WITH CAD: 08/28/2021 CLINICAL: Routine screening. Personal history of right breast cancer. Family history of breast cancer. Comparison is made to exams dated: 09/16/2019 mammogram, 07/12/2018 mammogram, and 06/03/2017 mammogram - [facility]. The tissue of both breasts is extremely dense, which lowers the sensitivity of mammography. Current study was also evaluated with a Computer Aided Detection (CAD) system. There are benign post operative findings in the right breast. There are mole markers on the right breast. There is a mole marker on the left breast. No significant masses, calcifications, or other findings are seen in either breast. There has been no significant interval change. IMPRESSION: BENIGN There is no mammographic evidence of malignancy. A 1 year screening mammogram is recommended. This exam was interpreted at Station ID: [id number]. NOTE: For mammograms, a report in lay terms will be sent to the patient. Approximately 15% of breast malignancies will not be visualized mammographically. In the management of a palpable breast mass, a negative mammogram must not discourage biopsy of a clinically suspicious lesion. Electronically Signed By: Ai chow/portia:08/28/2021 13:37:50 copy to: Cece Velez letter sent: Normal Exam ACR BI-RADS Category 2: Benign Finding(s) 3342F
== END ==
PROVIDERS: PCP Family Medicine; Referring Provider Family Medicine; Visit Provider Family Medicine
DX: Z12.31 Encounter for screening mammogram for malignant neoplasm of breast (principal); Z85.3 Personal history of malignant neoplasm of breast; Z80.3 Family history of malignant neoplasm of breast
CPT/HCPCS: 77063; 77067

== ENCOUNTER → 2022-09-05 08:04 | Outpatient (CLI) | payer OTHER, SELFPAY ==
--- NOTE | 2022-09-05 | DI.MG.S_ITS ---
BILATERAL DIGITAL SCREENING MAMMOGRAM 3D/2D WITH CAD: 09/05/2022 CLINICAL: Routine screening. Personal history of right breast cancer. Family history of breast cancer. Comparison is made to exams dated: 08/28/2021 mammogram, 09/16/2019 mammogram, and 07/12/2018 mammogram - [facility]. Both breasts are extremely dense, which lowers the sensitivity of mammography (category d />75% glandular tissue). Current study was also evaluated with a Computer Aided Detection (CAD) system. There are benign post operative findings in the right breast. There are mole markers on the right breast. There is a mole marker on the left breast. No significant masses, calcifications, or other findings are seen in either breast. There has been no significant interval change. IMPRESSION: BENIGN There is no mammographic evidence of malignancy. A 1 year screening mammogram is recommended. This exam was interpreted at Station ID: [id number]. NOTE: For mammograms, a report in lay terms will be sent to the patient. Approximately 15% of breast malignancies will not be visualized mammographically. In the management of a palpable breast mass, a negative mammogram must not discourage biopsy of a clinically suspicious lesion. Electronically Signed By: Agustín maher/portia:09/05/2022 12:13:04 copy to: Cece Velez letter sent: Normal Exam ACR BI-RADS Category 2: Benign Finding(s) 3342F
== END ==
PROVIDERS: PCP Family Medicine; Referring Provider Family Medicine; Visit Provider Family Medicine
DX: Z12.31 Encounter for screening mammogram for malignant neoplasm of breast (principal); Z80.3 Family history of malignant neoplasm of breast; Z85.3 Personal history of malignant neoplasm of breast
CPT/HCPCS: 77063; 77067

== ENCOUNTER → 2023-04-29 08:08 | Outpatient (CLI) | payer OTHER, SELFPAY ==
[2023-04-29 09:54] LABS: Add Manual Diff / Slide Review NO; Basophils Absolute Auto 0 /uL (0-100); Basophils Percent Auto 0.5 % (0-2); Eosinophils Absolute Auto 300 /uL (0-450); Eosinophils Percent Auto 4.4 % (2-4); Hematocrit 41.8 % (36-46); Hemoglobin 14.3 g/dL (12.0-16.0); Lymphocytes Absolute Auto 2900 /uL (1100-4500); Lymphocytes Percent Auto 39.9 % (25-40); Mean Corpuscular HGB Conc 34.1 % (30-36); Mean Corpuscular Hemoglobin 31.4 PG (26-34); Mean Corpuscular Volume 92.2 fL (80-100); Monocytes Absolute Auto 600 /uL (0-900); Monocytes Percent Auto 8.5 % (3-14); Neutrophils Absolute Auto 3400 /uL (1500-7000); Neutrophils Percent Auto 46.7 % (50-75); Platelet Count 325 X10^3/uL (150-400); Red Blood Cell Count 4.53 X10^6/uL (4.0-5.2); Red Cell Distribution Width 13.3 % (11.6-14.8); White Blood Cell Count 7.3 X10^3/uL (4.5-11.0)
[2023-04-29 10:20] LABS: Alanine Aminotransferase 20 IU/L (<35); Albumin 4.5 g/dL (3.5-5.0); Albumin Globulin Ratio 1.5 (1.0-2.8); Alkaline Phosphatase 79 U/L (38-126); Aspartate Aminotransferase 24 IU/L (14-36); BUN Creatinine Ratio 27.3 (6-22); Bilirubin Total 0.5 mg/dL (0.2-1.3); Blood Urea Nitrogen 21 mg/dL (7-17); Calcium 9.7 mg/dL (8.4-10.2); Carbon Dioxide 28 mmol/L (22-32); Chloride 101 mmol/L (98-107); Cholesterol 218 mg/dL (140-199); Estimated Glomerular Filt Rate > 60 mL/min (>60); Glucose 86 mg/dL (80-110); HDL Cholesterol 36 mg/dL (40-60); HEMOLYSIS < 15 (0-50); LDL Cholesterol Calculated 134 mg/dL (<100); Potassium 4.2 mmol/L (3.4-5.1); Sodium 139 mmol/L (137-145); Total Protein 7.5 g/dL (6.3-8.2); Triglycerides 239 mg/dL (35-150)
[2023-04-29 10:46] LABS: TSH w/ Reflex to FT4 0.91 uIU/mL (0.47-4.68)
[2023-04-30 08:26] LABS: Apolipoprotein B 130 mg/dL (<90)
== END ==
PROVIDERS: PCP Family Medicine; Referring Provider Family Medicine; Visit Provider Family Medicine
DX: E78.5 Hyperlipidemia, unspecified (principal); N60.91 Unspecified benign mammary dysplasia of right breast; D05.11 Intraductal carcinoma in situ of right breast
CPT/HCPCS: 36415; 80053; 80061; 82172; 84443; 85025

== ENCOUNTER → 2023-10-28 07:54 | Outpatient (CLI) | payer OTHER, SELFPAY ==
--- NOTE | 2023-10-28 07:55 | DI.MG.S_ITS ---
BILATERAL DIGITAL SCREENING MAMMOGRAM 3D/2D WITH CAD: 10/28/2023 CLINICAL: Routine screening. Personal history of right breast cancer. Comparison is made to exams dated: 09/05/2022 mammogram, 08/28/2021 mammogram, and 09/16/2019 mammogram - [facility]. Both breasts are extremely dense, which lowers the sensitivity of mammography (category d />75% glandular tissue). Current study was also evaluated with a Computer Aided Detection (CAD) system. There are benign post operative findings in the right breast. No significant masses, calcifications, or other findings are seen in either breast. There has been no significant interval change. IMPRESSION: BENIGN There is no mammographic evidence of malignancy. A 1 year screening mammogram is recommended. This exam was interpreted at Station ID: [id number]. NOTE: For mammograms, a report in lay terms will be sent to the patient. Approximately 15% of breast malignancies will not be visualized mammographically. In the management of a palpable breast mass, a negative mammogram must not discourage biopsy of a clinically suspicious lesion. Electronically Signed By: Melony rudolph/portia:10/28/2023 12:43:14 copy to: Cece Velez letter sent: Normal Exam ACR BI-RADS Category 2: Benign Finding(s) 3342F
== END ==
PROVIDERS: PCP Family Medicine; Referring Provider Family Medicine; Visit Provider Family Medicine
DX: Z12.31 Encounter for screening mammogram for malignant neoplasm of breast (principal); Z85.3 Personal history of malignant neoplasm of breast; R92.343 Mammographic extreme density, bilateral breasts
CPT/HCPCS: 77063; 77067

== ENCOUNTER → 2024-04-21 07:08 | Outpatient (CLI) | payer OTHER, SELFPAY ==
[2024-04-21 08:21] LABS: Add Manual Diff / Slide Review NO; Basophils Absolute Auto 0 /uL (0-100); Basophils Percent Auto 0.4 % (0-2); Eosinophils Absolute Auto 600 /uL (0-450); Hematocrit 45.6 % (36-46); Hemoglobin 15.3 g/dL (12.0-16.0); Lymphocytes Absolute Auto 2400 /uL (1100-4500); Lymphocytes Percent Auto 32.5 % (25-40); Mean Corpuscular HGB Conc 33.5 % (30-36); Mean Corpuscular Hemoglobin 30.9 PG (26-34); Mean Corpuscular Volume 92.4 fL (80-100); Monocytes Absolute Auto 500 /uL (0-900); Monocytes Percent Auto 7.1 % (3-14); Neutrophils Absolute Auto 3800 /uL (1500-7000); Platelet Count 289 X10^3/uL (150-400); Red Blood Cell Count 4.94 X10^6/uL (4.0-5.2); Red Cell Distribution Width 13.4 % (11.6-14.8); White Blood Cell Count 7.3 X10^3/uL (4.5-11.0)
[2024-04-21 08:56] LABS: Alanine Aminotransferase 22 IU/L (<35); Albumin 4.3 g/dL (3.5-5.0); Albumin Globulin Ratio 1.5 (1.0-2.8); Alkaline Phosphatase 73 U/L (38-126); Aspartate Aminotransferase 25 IU/L (14-36); BUN Creatinine Ratio 15.3 (6-22); Bilirubin Total 0.6 mg/dL (0.2-1.3); Blood Urea Nitrogen 15 mg/dL (7-17); Calcium 9.6 mg/dL (8.4-10.2); Carbon Dioxide 29 mmol/L (22-32); Chloride 103 mmol/L (98-107); Cholesterol 238 mg/dL (140-199); Estimated Glomerular Filt Rate > 60 mL/min (>60); Globulin 2.8 g/dL (1.7-4.1); Glucose 110 mg/dL (80-110); HDL Cholesterol 35 mg/dL (40-60); HEMOLYSIS < 15 (0-50); LDL Cholesterol Calculated 162 mg/dL (<100); Potassium 4.3 mmol/L (3.4-5.1); Sodium 138 mmol/L (137-145); Total Protein 7.1 g/dL (6.3-8.2); Triglycerides 204 mg/dL (35-150)
[2024-04-21 09:24] LABS: TSH w/ Reflex to FT4 1.53 uIU/mL (0.47-4.68)
[2024-04-22 03:08] LABS: Apolipoprotein B 143 mg/dL (<90)
[2024-04-22 19:43] LABS: Hep C Virus Ab w/Reflex Quant NEGATIVE s/c (NEGATIVE)
== END ==
PROVIDERS: PCP Family Medicine; Referring Provider Family Medicine; Visit Provider Family Medicine
DX: E78.5 Hyperlipidemia, unspecified (principal); N60.91 Unspecified benign mammary dysplasia of right breast
CPT/HCPCS: 36415; 80053; 80061; 82172; 84443; 85025; 86803